=== PATIENT | male | born 1935 | race Caucasian/White ===

== ENCOUNTER 2018-03-01 20:05 | Inpatient (IN) | payer MEDICARE, BC ==
[2018-03-01 20:37] LABS: Hemoglobin 15.8 g/dL (14.0-18.0); Mean Corpuscular HGB CONC 33.6 g/dL (32.0-36.0); Mean Corpuscular Hemoglobin 30.6 pg (27.0-31.0); Mean Corpuscular Volume 91.2 fL (78.0-98.0); Mean Platelet Volume 6.4 fL (7.4-10.4); Platelet Count 211 thou/uL (130-400); RBC Distribution Width 12.2 % (11.5-14.5); Red Blood Cell (RBC) Count 5.15 mill/uL (4.70-6.10); White Blood Cell (WBC) Count 17.9 thou/uL (4.8-10.8)
[2018-03-01] MEDS ORDERED: cefTRIAXone\\ROCEPHIN 2 GM VIAL ONE (20:43)
--- NOTE | 2018-03-01 20:52 | RAD ---
CHEST ONE VIEW: 03/01/18 INDICATION: Fever. COMPARISON: Prior exam dated 03/01/18. FINDINGS: There has been interval development of a small left pleural effusion. The right lung is clear. Heart size remains mildly prominent. No acute osseous abnormality is evident. IMPRESSION: Interval development of a small left pleural effusion. POS: [facility]
[2018-03-01 20:54] LABS: ALT (SGPT) 16 U/L (8-55); AST (SGOT) 15 U/L (5-34); Albumin 4.5 g/dL (3.4-4.8); Alkaline Phosphatase 72 U/L (40-150); Anion Gap 14 mmol/L (10-20); BUN (Urea Nitrogen) 22 mg/dL (8.4-25.7); Bilirubin, Total 0.9 mg/dL (0.2-1.2); Calc. Creatinine Clearance 0 mL/min (70-130); Calcium 9.3 mg/dL (7.8-10.44); Carbon Dioxide 22 mmol/L (23-31); Chloride 104 mmol/L (98-107); Estimated GFR-MDRD 48; Glucose 150 mg/dL (83-110); Potassium 3.7 mmol/L (3.5-5.1); Protein, Total 7.5 g/dL (5.8-8.1); Sodium 136 mmol/L (136-145)
[2018-03-01 21:10] LABS: Band 8 % (5-11); Lymphocytes 2 % (21-51); MDiff Complete? YES; Monocytes 2 % (0-10); Neutrophil 88 % (42-75); PLT Morphology Comment Appears Adequate
[2018-03-01 21:17] LABS: Bilirubin Small (Negative); Blood, Urine Small (Negative); Clarity CLOUDY (Clear); Glucose, Urine (Dipstick) Negative (Negative); Leukocyte Moderate (Negative); Nitrite Negative (Negative); Protein, Urine (Dipstick) 30 mg/dL (Neg-Trace); Specific Gravity, Urine 1.024 (1.002-1.036); Urobilinogen 0.2 mg/dL (0.2-1.0)
[2018-03-01 21:19] LABS: Bacteria/HPF None Seen HPF (None Seen)
[2018-03-01 21:24] LABS: Hyaline Casts/LPF 0-3 HYALINE CAST LPF (0-3 Hyaline); Pathc Cast-AUWi Flag 3.63 (0-2.49)
[2018-03-01] MEDS ORDERED: Guaifenesin DM 100-10/5 ML UDCUP PO PRN (22:48)
[2018-03-01] MEDS ORDERED: Ondansetron PF 4 MG/2 ML Vial IVP PRN (22:48)
[2018-03-01] MEDS ORDERED: Senokot S 8.6-50 MG TAB PO PRN (22:48)
[2018-03-01] MEDS ORDERED: Ibuprofen 200 MG TAB ONE (22:57)
[2018-03-02 00:20] LABS: Lactic Acid 2.4 mmol/L (0.5-2.2)
[2018-03-02] MEDS: Sodium Chloride 0.9% 1,000 ML IV SCH ×2 (00:37→21:52)
[2018-03-02 02:45] VITALS: BMI 42.1
--- NOTE | 2018-03-02 04:32 | HP ---
REASON FOR ADMISSION: Sepsis, urinary tract infection. HISTORY OF PRESENT ILLNESS: The patient gives history of having had a steroid shot placed to his right shoulder by Dr. Recinos yesterday morning. After he went to his assisted living facility in [facility], the patient could not sleep. Today around 4:00 p.m., the patient developed chills with rigors. He was also feeling very cold and sweaty. He went back to his apartment and tried to lie down. This was unrelenting. His daughter had come to visit him. They took him to urgent care where he was found to have had fever, elevated blood pressure, and started feeling nauseated as well. The physician at Urgent Care asked him to come to the emergency room. The patient has complaints of urinary urgency and frequency and is also incontinent. He follows up with Dr. Rice. Has some dry cough, but no expectoration. No complaints of shortness of breath, chest pain, palpitations, PND, or orthopnea. The patient states he completed a 2-week course of Bactrim for cellulitis of lower extremities. PAST MEDICAL AND SURGICAL HISTORY: Hypertension, chronic edema of lower extremities with history of cellulitis and wears a compression device, hypothyroidism, bilateral knee replacement, cholecystectomy, cervical spine surgery, recent cellulitis 2 weeks back. Has had recent right shoulder intra- articular shot placed by Dr. Recinos yesterday. CURRENT MEDICATIONS: The patient is on Synthroid 75 mcg p.o. daily, amlodipine with benazepril 10/20 mg p.o. daily, Coreg 3.125 mg daily, Myrbetriq daily, Xyzal 5 mg daily. ALLERGIES: KEFLEX. PERSONAL HISTORY: Does not abuse alcohol or drugs. No history of smoking. He lives at [facility]. FAMILY HISTORY: Mother lived up to 89 years and of natural causes. Father at the age of 63 years. 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 Has 2 brothers who have had history of DE in their 60s. CODE STATUS: FULL. This was discussed with the patient at bedside. REVIEW OF SYSTEMS: The following complete review of systems was negative, unless otherwise mentioned in the HPI or below: Constitutional: Weight loss or gain, ability to conduct usual activities. Skin: Rash, itching. Eyes: Double vision, pain. ENT/Mouth: Nose bleeding, neck stiffness, pain, tenderness. Cardiovascular: Palpitations, dyspnea on exertion, orthopnea. Respiratory: Shortness of breath, wheezing, cough, hemoptysis, fever or night sweats. Gastrointestinal: Poor appetite, abdominal pain, heartburn, nausea, vomiting, constipation, or diarrhea. Genitourinary: Urgency, frequency, dysuria, nocturia. Musculoskeletal: Pain, swelling. Neurologic/Psychiatric: Anxiety, depression. Allergy/Immunologic: Skin rash, bleeding tendency. PHYSICAL EXAMINATION: GENERAL: The patient is an 82-year-old male who is currently in mild distress from chills. VITAL SIGNS: Blood pressure 159/81, pulse 110 per minute, respiratory rate is 20 per minute, temperature 99.8 degrees Fahrenheit, saturating 94% on room air. NECK: Supple, no elevated JVD. HEENT: Eyes: Extraocular muscles intact. Pupils reacting to light. Oral cavity: Mucous membranes are dry. No exudates or congestion. CARDIOVASCULAR SYSTEM: S1, S2 heard, tachycardic. RESPIRATORY SYSTEM: Air entry 1+ bilaterally. No rales or rhonchi. ABDOMEN: Soft, bowel sounds heard. No tenderness, rigidity, or guarding. EXTREMITIES: Has chronic edema in both lower extremities which is nonpitting. No ischemic ulcers or gangrene. CENTRAL NERVOUS SYSTEM: No gross focal deficits noted. The patient is alert, awake, and oriented. PSYCHIATRIC: The patient's mood is euthymic. No hallucinations or delusions. LABORATORY AND X-RAY FINDINGS: EKG done shows sinus tachycardia at 103 beats per minute. White count of 17, H and H 15 and 47, platelet count 211. MCV is 91 with 88% neutrophils and 8% bands. Serum bicarbonate 22, BUN 22, creatinine 1.4. Electrolytes are stable. Serum glucose 150, lactic acid is 3.1. Liver enzymes within normal limits. Albumin is 4.5. UA shows moderate leukoesterase with 4-6 wbc's. Influenzae A and B antigens are negative. Chest x-ray done shows small left pleural effusion. CLINICAL IMPRESSION AND PLAN: The patient will be admitted to medical floor for sepsis with urinary tract infection. Blood and urine cultures have been obtained. He will be placed on Levaquin 500 mg IV daily. Normal saline at 50 mL per hour for now. We will obtain an echo with 2D Doppler for LV function and BNP levels as well. We will continue his Coreg at a small dose 3.125 mg twice daily. The patient will be using his compression device which he got recently fitted for chronic edema in his lower extremities. We will continue to closely monitor him on medical floor. ROSENDOD
[2018-03-02 06:05] LABS: INR-International Normal Ratio 1.2; Prothrombin Time 15.6 SEC (12.0-14.7)
[2018-03-02 06:20] LABS: Anion Gap 12 mmol/L (10-20); BUN (Urea Nitrogen) 23 mg/dL (8.4-25.7); Calc. Creatinine Clearance 75 mL/min (70-130); Calcium 8.1 mg/dL (7.8-10.44); Carbon Dioxide 23 mmol/L (23-31); Chloride 107 mmol/L (98-107); Estimated GFR-MDRD 52; Glucose 136 mg/dL (83-110); Potassium 3.8 mmol/L (3.5-5.1); Sodium 138 mmol/L (136-145)
[2018-03-02 06:36] LABS: Band 33 % (5-11); Hemoglobin 12.8 g/dL (14.0-18.0); Lymphocytes 1 % (21-51); MDiff Complete? YES; Mean Corpuscular Hemoglobin 30.5 pg (27.0-31.0); Mean Corpuscular Volume 92.4 fL (78.0-98.0); Mean Platelet Volume 6.8 fL (7.4-10.4); Metamyelocyte 2 % (0-0); Monocytes 6 % (0-10); Neutrophil 58 % (42-75); Platelet Count 152 thou/uL (130-400); RBC Distribution Width 12.3 % (11.5-14.5); Red Blood Cell (RBC) Count 4.21 mill/uL (4.70-6.10); White Blood Cell (WBC) Count 21.9 thou/uL (4.8-10.8)
[2018-03-02] MEDS: Carvedilol 3.125 MG TAB PO SCH ×2 (09:02→18:26)
[2018-03-02] MEDS: Famotidine 20 MG TAB PO SCH (09:02)
[2018-03-02] MEDS: Enoxaparin Sodium 40 MG/0.4 ML SYRINGE SC SCH (09:03)
[2018-03-02] MEDS: Acetaminophen 325 MG TAB PO PRN ×2 (18:26→21:52)
--- NOTE | 2018-03-02 19:28 | PDOC.PN ---
- Subjective Encounter Start Date: 03/02/18 Encounter Start Time: 19:20 Subjective: f/u for sepsis suspected from UTI source on Levaquin. Feeling better today. -: No fever noted. Tolerating po intake. - Objective Resuscitation Status: Resuscitation Status FULL:Full Resuscitation MAR Reviewed: Yes Vital Signs & Weight: Vital Signs (12 hours) Temp Pulse Resp BP Pulse Ox 03/02/18 15:54 97.9 F 74 20 135/81 95 03/02/18 10:56 98 F 72 18 132/76 94 L 03/02/18 08:10 93 L 03/02/18 07:59 97.7 F 72 16 122/70 93 L Weight Weight 277 lb 6 oz Result Diagrams: 03/02/18 05:03 03/02/18 05:03 Additional Labs: Microbiology 03/02/18 02:54 Sputum Respiratory Culture - Final 03/01/18 20:45 Nasal swab Influenza Types A,B Direct EIA - Final 03/01/18 20:53 Urine Straight Catheter Urine Culture - Preliminary 03/01/18 20:46 Venous blood - Right Arm Blood Culture - Preliminary Specimen has been received and culture in progress. No Growth to date. 03/01/18 20:24 Venous blood - Left Arm Blood Culture - Preliminary Gram Positive Darci Laboratory Tests 03/01/18 03/01/18 03/01/18 20:25 20:25 20:25 WBC 17.9 H Hgb 15.8 Creatinine 1.42 H Lactic Acid 3.1 H B-Natriuretic Peptide 03/01/18 03/02/18 23:58 05:03 WBC Hgb Creatinine Lactic Acid 2.4 H B-Natriuretic Peptide 95.3 Phys Exam - Physical Examination Constitutional: NAD HEENT: PERRLA, sclera anicteric, oral pharynx no lesions Neck: no nodes, no JVD, supple, full ROM diminished in bases, occasional wheeze S1, S2 Cardiovascular: RRR, no significant murmur, no rub, gallop Gastrointestinal: soft, non-tender, no distention, positive bowel sounds Musculoskeletal: pulses present, edema present Neurological: normal sensation, moves all 4 limbs Psychiatric: A&O x 3 Skin: normal turgor, cap refill <2 seconds Dx/Plan (1) Sepsis Code(s): A41.9 - SEPSIS, UNSPECIFIED ORGANISM Status: Acute Comment: Suspected due to UTI, continue Levaquin pending final blood/Ucx results, IVF's (2) UTI (urinary tract infection) Status: Acute Comment: Suspected given UA, final Ucx pending (3) KRZYSZTOF (acute kidney injury) Code(s): N17.9 - ACUTE KIDNEY FAILURE, UNSPECIFIED Status: Acute Comment: Improved, continue IVF's, avoid nephrotoxic meds and limit contrast exposure (4) Neutrophilic leukocytosis Code(s): D72.9 - DISORDER OF WHITE BLOOD CELLS, UNSPECIFIED Status: Acute Comment: Secondary to #1, #2, serial CBC, potential component with recent joint injection with steroids - Plan continue antibiotics, PT/OT, community mental health social worker, out of bed/ambulate, DVT proph w/ SCDs Stable currently -: Continue Levaquin 500mg IV daily -: Await final Ucx/blood cx results -: Resume Mybetriq 25mg daily -: AM lab: BMP, CBC * .
[2018-03-03 06:03] LABS: Band 13 % (5-11); Hemoglobin 12.8 g/dL (14.0-18.0); Lymphocytes 9 % (21-51); MDiff Complete? YES; Mean Corpuscular HGB CONC 31.2 g/dL (32.0-36.0); Mean Corpuscular Hemoglobin 29.4 pg (27.0-31.0); Mean Corpuscular Volume 94.1 fL (78.0-98.0); Mean Platelet Volume 6.9 fL (7.4-10.4); Monocytes 8 % (0-10); Neutrophil 70 % (42-75); Platelet Count 142 thou/uL (130-400); RBC Distribution Width 12.4 % (11.5-14.5); Red Blood Cell (RBC) Count 4.34 mill/uL (4.70-6.10); White Blood Cell (WBC) Count 14.3 thou/uL (4.8-10.8)
[2018-03-03 06:08] LABS: Anion Gap 9 mmol/L (10-20); BUN (Urea Nitrogen) 18 mg/dL (8.4-25.7); Calc. Creatinine Clearance 94 mL/min (70-130); Calcium 8.3 mg/dL (7.8-10.44); Carbon Dioxide 25 mmol/L (23-31); Chloride 110 mmol/L (98-107); Estimated GFR-MDRD 67; Glucose 122 mg/dL (83-110); Potassium 4.6 mmol/L (3.5-5.1); Sodium 139 mmol/L (136-145)
[2018-03-03] MEDS: Carvedilol 3.125 MG TAB PO SCH ×2 (09:09→18:31)
[2018-03-03] MEDS: Famotidine 20 MG TAB PO SCH (09:10)
[2018-03-03] MEDS: Enoxaparin Sodium 40 MG/0.4 ML SYRINGE SC SCH (09:11)
--- NOTE | 2018-03-03 16:58 | PDOC.PN ---
- Subjective Encounter Start Date: 03/03/18 Encounter Start Time: 16:45 Subjective: f/u for sepsis likely from urinary source, initially Corynebacterium spp -: on Levaquin. Feels better overall. - Objective Resuscitation Status: Resuscitation Status FULL:Full Resuscitation MAR Reviewed: Yes Vital Signs & Weight: Vital Signs (12 hours) Temp Pulse Resp BP Pulse Ox 03/03/18 15:55 97.9 F 71 18 147/83 H 96 03/03/18 11:33 97.3 F L 71 22 H 143/75 H 92 L 03/03/18 08:15 95 03/03/18 08:05 97.6 F 65 21 H 156/80 H 95 Weight Weight 277 lb 6 oz Result Diagrams: 03/03/18 05:15 03/03/18 05:15 Additional Labs: Microbiology 03/02/18 02:54 Sputum Respiratory Culture - Final 03/01/18 20:53 Urine Straight Catheter Urine Culture - Final 03/01/18 20:45 Nasal swab Influenza Types A,B Direct EIA - Final 03/01/18 20:53 Urine Straight Catheter Urine Culture - Preliminary 03/01/18 20:46 Venous blood - Right Arm Blood Culture - Preliminary Specimen has been received and culture in progress. No Growth to date. 03/01/18 20:46 Venous blood - Right Arm Blood Culture - Preliminary NO GROWTH AT 48 HOURS 03/01/18 20:24 Venous blood - Left Arm Blood Culture - Preliminary Presumptive Corynebacterium sp 03/01/18 20:24 Venous blood - Left Arm Blood Culture - Preliminary Gram Positive Darci Laboratory Tests 03/01/18 03/01/18 03/01/18 20:25 20:25 20:25 WBC 17.9 H Hgb 15.8 Band Neuts % (Manual) Creatinine 1.42 H Lactic Acid 3.1 H B-Natriuretic Peptide 03/01/18 03/02/18 03/02/18 23:58 05:03 05:03 WBC 21.9 H Hgb Band Neuts % (Manual) 33 H Creatinine 1.32 H Lactic Acid 2.4 H B-Natriuretic Peptide 03/02/18 03/03/18 05:03 05:15 WBC Hgb Band Neuts % (Manual) 13 H Creatinine Lactic Acid B-Natriuretic Peptide 95.3 Phys Exam - Physical Examination Constitutional: NAD HEENT: PERRLA, sclera anicteric, oral pharynx no lesions Neck: no nodes, no JVD, supple, full ROM Respiratory: no wheezing, no rales, no rhonchi, clear to auscultation bilateral S1, S2 Cardiovascular: RRR, no significant murmur, no rub, gallop Gastrointestinal: soft, non-tender, no distention, positive bowel sounds Musculoskeletal: pulses present, edema present Neurological: normal sensation, moves all 4 limbs Psychiatric: normal affect Skin: normal turgor, cap refill <2 seconds Dx/Plan (1) Sepsis Code(s): A41.9 - SEPSIS, UNSPECIFIED ORGANISM Status: Acute Comment: Suspected due to UTI, continue Levaquin pending final blood/Ucx results, saline lock IVF (2) UTI (urinary tract infection) Status: Acute Comment: Suspected given UA, final Ucx pending without dominant organism, continue Levaquin (3) KRZYSZTOF (acute kidney injury) Code(s): N17.9 - ACUTE KIDNEY FAILURE, UNSPECIFIED Status: Acute Comment: Improved, avoid nephrotoxic meds and limit contrast exposure (4) Neutrophilic leukocytosis Code(s): D72.9 - DISORDER OF WHITE BLOOD CELLS, UNSPECIFIED Status: Acute Comment: Secondary to #1, #2, serial CBC, potential component with recent joint injection with steroids - Plan plan discussed w/ family, continue antibiotics, PT/OT, social worker palliative care, out of bed/ambulate Stable overall -: Continue Levaquin 250mg IV daily -: 2D echo pending -: Await final sensitivities from blood cx -: AM lab: BMP, CBC * .
[2018-03-04 05:17] LABS: Band 4 % (5-11); Eosinophils 1 % (0-10); Hemoglobin 13.5 g/dL (14.0-18.0); Lymphocytes 7 % (21-51); MDiff Complete? YES; Mean Corpuscular HGB CONC 33.2 g/dL (32.0-36.0); Mean Corpuscular Hemoglobin 30.8 pg (27.0-31.0); Mean Corpuscular Volume 92.8 fL (78.0-98.0); Mean Platelet Volume 7.1 fL (7.4-10.4); Monocytes 5 % (0-10); Neutrophil 82 % (42-75); Platelet Count 152 thou/uL (130-400); RBC Distribution Width 12.2 % (11.5-14.5); Reactive Lymphocytes 1 % (0-10); Red Blood Cell (RBC) Count 4.39 mill/uL (4.70-6.10); White Blood Cell (WBC) Count 10.5 thou/uL (4.8-10.8)
[2018-03-04 05:41] LABS: Anion Gap 7 mmol/L (10-20); BUN (Urea Nitrogen) 14 mg/dL (8.4-25.7); Calc. Creatinine Clearance 107 mL/min (70-130); Calcium 8.7 mg/dL (7.8-10.44); Carbon Dioxide 28 mmol/L (23-31); Chloride 108 mmol/L (98-107); Estimated GFR-MDRD 78; Glucose 115 mg/dL (83-110); Potassium 4.1 mmol/L (3.5-5.1); Sodium 139 mmol/L (136-145)
[2018-03-04] MEDS: Carvedilol 3.125 MG TAB PO SCH (08:10)
[2018-03-04] MEDS: Famotidine 20 MG TAB PO SCH (08:10)
[2018-03-04] MEDS: Enoxaparin Sodium 40 MG/0.4 ML SYRINGE SC SCH (08:10)
[2018-03-04 08:26] VITALS: TEMP 97.7
--- NOTE | 2018-03-04 11:49 | DIS ---
DATE OF ADMISSION: 03/01/2018 DATE OF DISCHARGE: 03/04/2018 DISCHARGE DIAGNOSES: 1. Sepsis secondary to suspected urinary tract infection. 2. Urinary tract infection, dominant organism not identified. 3. Acute kidney injury, multifactorial, resolving. 4. Neutrophilic leukocytosis, resolved. 5. Hypertension, labile. CONSULTATIONS: None. PERTINENT LABORATORY DATA AND X-RAY FINDINGS: Creatinine ranged between 0.93-1.42. Estimated GFR ra nged between 48-78. Lactic acid level ranged between 2.4-3.1. CBC showed a white blood cell count r anged between 10.5-21.9, hemoglobin ranged between 12.8-15.8. Blood cultures dated 03/01/2018 showed 1/2 positive for presumptive corynebacterium species. Influenza A and B antigen negative, 8. Urine culture dated 03/01/2018 showed mixed skin thao. Sputum culture dated 03/02/2018 showed c ontaminated specimen. Portable chest x-ray dated 03/01/2018 showed small left pleural effusion. A 2 D transthoracic echocardiogram dated 03/03/2018 showed ejection fraction of 55%-60%. Mild aortic and mitral regurgitation. Mild to moderate tricuspid regurgitation. HOSPITAL COURSE: The patient was initially admitted to the medical floor after presenting with crite keyonna for sepsis. The patient was placed on broad spectrum antibiotic therapy including Levaquin 500 m g daily, as well as given IV fluids. Initial concern for potential urinary tract infection with cove rage directed at the source. The patient underwent general evaluation with blood culture showing 1/2 positive for corynebacterium species, questionable skin contaminant versus pathogen. No specific or dominant organism was identified on urine culture results; however, the patient did clinically impro cullen with IV Levaquin. The patient was discontinued on his regular benazepril due to acute kidney inj ury, likely multifactorial. Current recommendations are to discontinue benazepril and continue Norva sc as a single agent. The patient overall clinically stabilized with supportive management, IV antib iotics and IV fluids. I have examined the patient at the time of discharge and discussed followup in structions. The patient overall clinically stable and ready for discharge on 03/04/2018. DISCHARGE MEDICATIONS: 1. Enteric coated aspirin 81 mg 1 tab p.o. daily. 2. Carvedilol 3.125 mg p.o. b.i.d. 3. Xyzal 5 mg p.o. at bedtime. 4. Levothyroxine 75 mcg 1 tab p.o. daily. 5. Myrbetriq 25 mg p.o. daily. 6. Norvasc 10 mg p.o. daily. 7. Levaquin 250 mg p.o. daily x7 days. FOLLOWUP: The patient will follow up with Dr. Beth Townsend within 7 days of discharge. CONDITION ON DISCHARGE: Stable. ACTIVITY: Ad ana. DIET: Heart healthy. CODE STATUS: FULL. DISPOSITION: Home, 03/04/2018.
[2018-03-04 12:22] VITALS: BP 147/79
== END 2018-03-04 15:10 | disposition home or self-care (01) | DRG 872 ==
LOC: ERS 20:05 → SURG B 21:30
PROVIDERS: ADMIT Internal Medicine; ATTEND Internal Medicine
DX: A41.9 Sepsis, unspecified organism (principal); N39.0 Urinary tract infection, site not specified; N17.9 Acute kidney failure, unspecified; I10 Essential (primary) hypertension; D72.9 Disorder of white blood cells, unspecified; E03.9 Hypothyroidism, unspecified; Z96.653 Presence of artificial knee joint, bilateral; Z90.49 Acquired absence of other specified parts of digestive tract; Z82.49 Family history of ischemic heart disease and other diseases of the circulatory system
CPT/HCPCS: 36415; 51701; 71045; 80048; 80053; 81003; 81015; 83605; 83880; 85007; 85025; 85027; 85610; 87040; 87070; 87086; 87205; 87804; 93005; 93306; 96361; 96365; 96367; J0696; J1650; J1956; J3370

== ENCOUNTER 2018-12-28 16:34 | Emergency (ER) | payer MEDICARE, BC ==
--- NOTE | 2018-12-28 17:16 | SJPRAD ---
TWO VIEW CHEST: 12/28/18 INDICATION: Cough, chest tightness. COMPARISON: 03/21/18. FINDINGS: Chest is similar appearing to prior exam without evidence of interval development of consolidation, s ignificant effusion or discrete pneumothorax. Cardiomediastinal silhouette is grossly stable. IMPRESSION: Stable chest. POS: [facility]
[2018-12-28] MEDS ORDERED: Iopamidol 370 76% 100 ML VIAL ONE (17:18)
[2018-12-28 23:52] LABS: #Basophils 0.1 thou/uL (0.0-0.2); #Eosinphils 0.3 thou/uL (0.0-0.7); #Lymphocytes 1.8 thou/uL (1.20-3.40); #Monocytes 1.1 thou/uL (0.11-0.59); #Neutrophils 7.4 thou/uL (1.40-6.50); %Basophils 0.5 % (0.0-1.0); %Eosinophils 2.4 % (0.0-10.0); %Lymphocytes 16.7 % (21.0-51.0); %Monocytes 10.4 % (0.0-10.0); Hemoglobin 16.7 g/dL (14.0-18.0); Mean Corpuscular HGB CONC 34.5 g/dL (32.0-36.0); Mean Corpuscular Hemoglobin 30.8 pg (27.0-31.0); Mean Corpuscular Volume 89.3 fL (78.0-98.0); Mean Platelet Volume 7.2 fL (7.4-10.4); Platelet Count 180 thou/uL (130-400); RBC Distribution Width 12.7 % (11.5-14.5); White Blood Cell (WBC) Count 10.6 thou/uL (4.8-10.8)
[2018-12-29 00:06] LABS: ALT (SGPT) 20 U/L (8-55); AST (SGOT) 19 U/L (5-34); Albumin 4.6 g/dL (3.4-4.8); Alkaline Phosphatase 83 U/L (40-150); Anion Gap 14 mmol/L (10-20); BUN (Urea Nitrogen) 17 mg/dL (8.4-25.7); Bilirubin, Total 0.9 mg/dL (0.2-1.2); Calc. Creatinine Clearance 0 mL/min (70-130); Calcium 9.8 mg/dL (7.8-10.44); Carbon Dioxide 28 mmol/L (23-31); Chloride 98 mmol/L (98-107); Estimated GFR-MDRD 43; Globulin 3.2 g/dL (2.4-3.5); Glucose 115 mg/dL (83-110); Potassium 3.5 mmol/L (3.5-5.1); Protein, Total 7.8 g/dL (5.8-8.1); Sodium 136 mmol/L (136-145)
--- NOTE | 2018-12-29 08:25 | CT ---
PRELIMINARY REPORT/[facility]/EMERGENCY AFTER HOURS PROCEDURE: EXAM: CT Angiography Chest With Contrast EXAM DATE/TIME: 12/29/2018 12:17 AM CLINICAL HISTORY: 83 years old, male; Cough and dyspnea; Patient HX: Er 22. M83 presents to the ED with C/O wheezing, c oughing since yesterday morning. Patient reports fever. Patient reports swelling in the legs TECHNIQUE: Imaging protocol: Computed tomographic angiography of the chest with intravenous contrast. 3D renderi ng: MIP reconstructed images were created and reviewed. COMPARISON: No relevant prior studies available. FINDINGS: Pulmonary arteries: Limited study due to suboptimal contrast opacification of the pulmonary arteries, however there is no definite evidence of pulmonary embolism. Aorta: Atherosclerotic calcifications. No acute findings. Mild focal ectasia of the proximal descendi ng thoracic aorta. Thyroid: Small thyroid nodules. Lungs: No consolidation. No masses. Pleural space: No pneumothorax. No pleural effusion. Heart: No significant cardiomegaly. Coronary calcifications. No pericardial effusion. Liver: Multiple hypodense liver lesions measuring up to 4.5 cm. Lymph nodes: No significant adenopathy. Bones/joints: No acute fracture. Soft tissues: No acute findings. IMPRESSION: Limited study. No definite evidence of pulmonary embolism. Coronary calcifications. Liver lesions and other findings above. Thank you for allowing us to participate in the care of your patient. Dictated and Authenticated by: Fernando Roach MD 12/29/2018 1:26 AM Central Time ([place] & [place]) FINAL REPORT CT PULMONARY ANGIOGRAM WITH IV CONTRAST AND 3D POST PROCESSING: I agree with the preliminary report given by Dr. Roach of [facility]. POS: [facility]
== END 2018-12-29 01:46 | disposition home or self-care (01) ==
LOC: MWLC RAD 16:34 → ERS 16:34 → EDSTATUS 23:41 → ERS 12-29 01:46
DX: J39.9 Disease of upper respiratory tract, unspecified (principal); I10 Essential (primary) hypertension; E03.9 Hypothyroidism, unspecified; Z87.891 Personal history of nicotine dependence; Z79.82 Long term (current) use of aspirin; Z79.891 Long term (current) use of opiate analgesic; Z79.899 Other long term (current) drug therapy
CPT/HCPCS: 71275; 80053; 83690; 83880; 84484; 85025; 96361; 96374; J1100; J1885; J7620; Q9967

== ENCOUNTER 2019-01-18 08:41 | Outpatient (CLI) | payer MEDICARE, BC ==
--- NOTE | 2019-01-18 11:45 | CT ---
CT ABDOMEN AND PELVIS WITHOUT AND WITH IV CONTRAST CTA CHEST: Date: 01/18/19 HISTORY: Liver lesion seen on prior CTA of chest. TECHNIQUE: Multiple contiguous axial images were obtained in a CT of the abdomen and pelvis without and with IV contrast. Postcontrast images obtained in arterial nephrographic and delayed phases. Sagittal and cor onal reformats were performed. FINDINGS: There are multiple scattered hypodensities in the liver measuring up to 4.1 cm in size. These do not demonstrate enhancement and are consistent with simple cysts. No suspicious liver lesions are seen. N o intrahepatic biliary dilatation is seen. The gallbladder is absent. The kidneys, adrenal glands, spleen, and pancreas are unremarkable. No free air, free fluid, or stranding changes are seen in the abdomen or pelvis. Scattered diverticul a seen in the colon. The small bowel is unremarkable. No abdominal or pelvic lymphadenopathy seen. At herosclerotic calcifications are seen in the aorta. Degenerative changes are seen in the spine. Calcifications are seen in the coronary arteries. The vis ualized inferior thorax is otherwise unremarkable. The abdominal wall soft tissues are unremarkable. IMPRESSION: 1. Hepatic cysts. 2. Diverticulosis. 3. Coronary artery atherosclerotic calcifications. POS: [facility]
[2019-01-18] MEDS ORDERED: ISOVUE-370 76%-LOCM 1 ML ONE (18:12)
== END 2019-01-18 08:42 | disposition home or self-care (01) ==
LOC: BICCT 08:41
PROVIDERS: ATTEND Family Medicine
DX: K76.9 Liver disease, unspecified (principal); K76.89 Other specified diseases of liver; I25.10 Atherosclerotic heart disease of native coronary artery without angina pectoris; K57.30 Diverticulosis of large intestine without perforation or abscess without bleeding
CPT/HCPCS: 74178; Q9966

== ENCOUNTER 2019-06-19 13:25 | Outpatient (CLI) | payer MEDICARE, OTHER ==
--- NOTE | 2019-06-19 14:13 | RAD ---
EXAM: 2 views of the lumbosacral spine HISTORY: Low back pain COMPARISON: None FINDINGS: 2 views of the lumbosacral spine shows normal height and alignment of the vertebral bodies without fracture or subluxation. Moderate to severe degenerative changes are seen throughout the lumbar spine with intervertebral disc space narrowing and osteophyte formation. Posterior facet arthr osis is seen in the lower lumbosacral spine. The sacroiliac joints are unremarkable. IMPRESSION: Severe degenerative changes of lumbar spine without acute osseous abnormality.
== END 2019-06-19 13:26 | disposition home or self-care (01) ==
LOC: BICRAD 13:25
PROVIDERS: ATTEND Family Medicine
DX: M54.5 Low back pain (principal); M47.816 Spondylosis without myelopathy or radiculopathy, lumbar region
CPT/HCPCS: 72100

== ENCOUNTER 2021-11-30 14:10 | Outpatient (CLI) | payer MEDICARE ==
[2021-11-30 15:17] LABS: #Basophils 0.1 10x3/uL (0.0-0.2); #Eosinphils 0.4 10x3/uL (0.0-0.5); #Monocytes 0.7 10x3/uL (0.0-1.1); #Neutrophils 4.4 10x3/uL (1.5-8.4); %Basophils 0.7 % (0.0-2.0); %Eosinophils 4.8 % (0.0-6.0); %Monocytes 9.6 % (0.0-10.0); %Neutrophils 60.5 % (40.0-75.0); Hemoglobin 13.8 g/dL (13.5-17.5); Mean Corpuscular HGB CONC 34.4 g/dL (32.0-36.0); Mean Corpuscular Hemoglobin 30.9 pg (27.0-33.0); Mean Corpuscular Volume 89.9 fl (81.2-95.1); Mean Platelet Volume 8.9 fl (7.4-10.4); Platelet Count 174 10x3/uL (150-450); RBC Distribution Width 13.2 % (11.5-14.5); Red Blood Cell (RBC) Count 4.46 10x6/uL (4.32-5.72); White Blood Cell (WBC) Count 7.3 10x3/uL (3.5-10.5)
[2021-11-30 15:45] LABS: Anion Gap 13 mmol/L (10-20); BUN (Urea Nitrogen) 18 mg/dL (8.4-25.7); Calc. Creatinine Clearance 0 mL/min (70-130); Calcium 9.3 mg/dL (7.8-10.44); Carbon Dioxide 29 mmol/L (23-31); Chloride 102 mmol/L (98-107); Estimated GFR 59; Glucose 110 mg/dL (83-110); Sodium 140 mmol/L (136-145)
== END 2021-11-30 14:11 | disposition home or self-care (01) ==
LOC: LABBT 14:10
PROVIDERS: ATTEND Orthopaedic Surgery
DX: Z01.812 Encounter for preprocedural laboratory examination (principal); M19.011 Primary osteoarthritis, right shoulder; Z20.822 Contact with and (suspected) exposure to COVID-19
CPT/HCPCS: 80048; 85025; 87811

== ENCOUNTER 2021-12-03 07:36 | Inpatient (IN) | payer MEDICARE ==
[2021-12-02 11:25] VITALS: BMI 38.0
[2021-12-03] MEDS ORDERED: Vancomycin (BATCH) 1.5 GRAM/300 ML BAG ONE (08:15)
[2021-12-03] MEDS ORDERED: Sodium Chloride 0.9% 100 ML ONE (08:15)
[2021-12-03] MEDS ORDERED: Tranexamic Acid 1,000 MG/10 ML VIAL ONE (08:15)
[2021-12-03] MEDS ORDERED: Fentanyl 100 MCG/2 ML VIAL ONE ×2 (08:25→12:22)
[2021-12-03] MEDS ORDERED: fentaNYL Citrate/PF 100 MCG/2 ML SYRINGE ONE ×2 (09:25→11:05)
[2021-12-03] MEDS ORDERED: Ropivacaine 0.2% 550 ML 550 ML NERVE BLCK SCH (09:30)
[2021-12-03] MEDS ORDERED: Zolpidem Tartrate 5 MG TAB PO PRN (09:30)
[2021-12-03] MEDS ORDERED: HYDROcodone/Acetaminophen 5/325 mg Tablet PO PRN ×2 (09:30)
[2021-12-03] MEDS ORDERED: Ondansetron PF 4 MG/2 ML Vial IVP PRN (09:30)
[2021-12-03] MEDS ORDERED: Promethazine HCl 25 MG/ML VIAL IM PRN ×2 (09:30→11:12)
[2021-12-03] MEDS ORDERED: traMADol HCl 50 MG TAB PO PRN ×2 (09:30)
[2021-12-03] MEDS ORDERED: Levofloxacin 500 mg/D5W 100 ml Premix Bag ONE (09:31)
[2021-12-03] MEDS ORDERED: Lidocaine 1% PF 5 ML VIAL ONE (09:48)
[2021-12-03] MEDS ORDERED: Ondansetron PF 4 MG/2 ML Vial ONE (09:48)
[2021-12-03] MEDS ORDERED: PROPOFOL 200 MG/20 ML VIAL ONE (09:48)
[2021-12-03] MEDS ORDERED: ePHEDrine 50 MG/ML VIAL ONE (09:48)
[2021-12-03] MEDS ORDERED: Ropivacaine 0.5% HCl/PF (150 MG/30 ML VIAL) ONE (09:48)
[2021-12-03] MEDS ORDERED: Neostigmine Methylsulfate 3 MG/3 ML SYRINGE ONE (09:48)
[2021-12-03] MEDS ORDERED: Rocuronium Bromide 10 MG/ML (10ML VIAL) ONE (09:48)
[2021-12-03] MEDS ORDERED: Phenylephrine 10 MG/ML VIAL ONE (09:48)
[2021-12-03] MEDS ORDERED: Glycopyrrolate 0.2 MG/ML 5 ML SYRINGE ONE (09:48)
[2021-12-03] MEDS ORDERED: PACU-Morphine 4MG/ML VIAL SLOW IVP PRN (11:12)
[2021-12-03] MEDS ORDERED: Promethazine HCl 25 MG/ML VIAL IVPB PRN (11:12)
[2021-12-03] MEDS ORDERED: Ondansetron HCl/PF 4 MG/2 ML Vial IVP PRN (11:12)
[2021-12-03] MEDS ORDERED: HYDROcodone/Acetaminophen 10/325 mg Tablet PO PRN (11:31)
[2021-12-03] MEDS: HYDROcodone/Acetaminophen 10/325 mg Tablet PO PRN (14:58)
[2021-12-03] MEDS: Dextrose 5 %-0.45 % NaCl 1,000 ML IV SCH (14:59)
[2021-12-03] MEDS: Gabapentin 400 MG CAP PO SCH (20:40)
[2021-12-03] MEDS ORDERED: Vancomycin HCl 1.5 GM in Sodium Chloride 0.9% 250 ML 300 ML IVPB SCH (21:00)
[2021-12-04] MEDS: HYDROcodone/Acetaminophen 10/325 mg Tablet PO PRN (00:38)
[2021-12-04] MEDS: Ketorolac Tromethamine 30 MG/ML VIAL IVP PRN ×3 (01:01→20:59)
[2021-12-04] MEDS: Levothyroxine Sodium 75 MCG TAB PO SCH (06:24)
[2021-12-04] MEDS: Dextrose 5 %-0.45 % NaCl 1,000 ML IV SCH ×2 (06:27→09:16)
[2021-12-04] MEDS: Carvedilol 6.25 MG TAB PO SCH ×2 (09:10→20:58)
[2021-12-04] MEDS: Folic Acid 1 MG TAB PO SCH (09:10)
[2021-12-04] MEDS: Lisinopril 20 MG TAB PO SCH (09:11)
[2021-12-04] MEDS: Trospium 20 MG TAB PO SCH (09:11)
[2021-12-04] MEDS: Gabapentin 400 MG CAP PO SCH (20:59)
[2021-12-05] MEDS: Dextrose 5 %-0.45 % NaCl 1,000 ML IV SCH (02:55)
[2021-12-05] MEDS: Levothyroxine Sodium 75 MCG TAB PO SCH (05:44)
[2021-12-05] MEDS: Lisinopril 20 MG TAB PO SCH (08:38)
[2021-12-05] MEDS: Carvedilol 6.25 MG TAB PO SCH (08:38)
[2021-12-05] MEDS: Folic Acid 1 MG TAB PO SCH (08:38)
[2021-12-05] MEDS: Trospium 20 MG TAB PO SCH (08:39)
[2021-12-05] MEDS: HYDROcodone/Acetaminophen 10/325 mg Tablet PO PRN (10:08)
[2021-12-05] MEDS: Ketorolac Tromethamine 30 MG/ML VIAL IVP PRN (10:09)
[2021-12-05 10:58] VITALS: BP 106/62; TEMP 98.3
[2021-12-10] MEDS ORDERED: Methotrexate Sodium 2.5 MG TAB PO SCH (09:00)
== END 2021-12-05 12:45 | disposition home or self-care (01) | DRG 483 ==
LOC: SDC 07:36 → OBSVTOIN 11:32 → SURG A 11:32
PROVIDERS: ADMIT Orthopaedic Surgery; ATTEND Orthopaedic Surgery
PROC: 0RRJ00Z Replacement of Right Shoulder Joint with Reverse Ball and Socket Synthetic Substitute, Open Approach (ICD-10-PCS; principal; 2021-12-03)
PROC: 3E0T3BZ Introduction of Anesthetic Agent into Peripheral Nerves and Plexi, Percutaneous Approach (ICD-10-PCS; 2021-12-03)
DX: M19.011 Primary osteoarthritis, right shoulder (principal); Z20.822 Contact with and (suspected) exposure to COVID-19; E03.9 Hypothyroidism, unspecified; H91.90 Unspecified hearing loss, unspecified ear; I50.9 Heart failure, unspecified; I11.0 Hypertensive heart disease with heart failure; Z96.653 Presence of artificial knee joint, bilateral; Z79.899 Other long term (current) drug therapy; Z79.890 Hormone replacement therapy; Z87.440 Personal history of urinary (tract) infections; Z90.49 Acquired absence of other specified parts of digestive tract; Z90.89 Acquired absence of other organs; Z82.49 Family history of ischemic heart disease and other diseases of the circulatory system; Z82.3 Family history of stroke; Z80.9 Family history of malignant neoplasm, unspecified
CPT/HCPCS: 93005; 93010; A4306; C1713; C1776; J1885; J1956; J2370; J2405; J2704; J2795; J3010; J3370; J3490; J7042; J7050

== ENCOUNTER 2023-01-30 14:08 | Emergency (ER) | payer MEDICARE ==
[~2023-01-30 14:08] MED LIST: Iopamidol-370 76% 500 ML MDV (1 ML CHARGE) ONE
[2023-01-30 15:37] LABS: ALT (SGPT) 11 U/L (8-55); AST (SGOT) 13 U/L (5-34); Albumin 3.5 g/dL (3.4-4.8); Alkaline Phosphatase 68 U/L (40-110); Anion Gap 13 mmol/L (10-20); BUN (Urea Nitrogen) 14 mg/dL (8.4-25.7); Bilirubin, Total 1.2 mg/dL (0.2-1.2); Calc. Creatinine Clearance 0 mL/min (70-130); Carbon Dioxide 24 mmol/L (23-31); Chloride 102 mmol/L (98-107); Estimated GFR 63; Globulin 1.9 g/dL (2.4-3.5); Glucose 113 mg/dL (83-110); Lipase 10 U/L (8-78); Potassium 3.6 mmol/L (3.5-5.1); Protein, Total 5.4 g/dL (5.8-8.1); Sodium 135 mmol/L (136-145)
[2023-01-30 15:47] LABS: Troponin I 0.016 ng/mL (< 0.028)
[2023-01-30] MEDS ORDERED: Acetaminophen 500 MG TAB ONE (15:54)
[2023-01-30 15:55] LABS: #Eosinphils 0.2 thou/uL (0.0-0.7); #Monocytes 0.9 thou/uL (0.11-0.59); #Neutrophils 6.5 thou/uL (1.40-6.50); %Basophils 0.5 % (0.0-1.0); %Lymphocytes 10.1 % (21.0-51.0); %Monocytes 10.7 % (0.0-10.0); %Neutrophils 76.3 % (42.0-75.0); Hematocrit 37.7 % (42.0-52.0); Hemoglobin 12.8 g/dL (14.0-18.0); Mean Corpuscular Hemoglobin 31.7 pg (27.0-31.0); Mean Corpuscular Volume 93.3 fl (78.0-98.0); Mean Platelet Volume 9.7 fL (7.4-10.4); Platelet Count 127 10x3/uL (130-400); RBC Distribution Width 13.6 % (11.5-14.5); Red Blood Cell (RBC) Count 4.04 mill/uL (4.70-6.10); White Blood Cell (WBC) Count 8.5 10x3/uL (4.8-10.8)
== END 2023-01-30 19:00 | disposition home or self-care (01) ==
LOC: ERS 14:08
DX: K59.00 Constipation, unspecified (principal); I10 Essential (primary) hypertension; E03.9 Hypothyroidism, unspecified; Z87.891 Personal history of nicotine dependence; Z79.899 Other long term (current) drug therapy; Z79.82 Long term (current) use of aspirin
CPT/HCPCS: 36415; 74177; 80053; 83690; 84484; 85025; 93005; Q9967